=== PATIENT | male | born 1965 | race Asian ===

== ENCOUNTER 2023-04-06 08:00 | Outpatient (CLI) | payer MEDICAID ==
--- NOTE | 2023-04-06 16:37 | XRAY Report ---
PROCEDURE: Knee 3 View RT INDICATIONS: RIGHT KNEE PAIN TECHNIQUE: 3 views of the knee(s) were acquired. COMPARISON: None. FINDINGS: Bones: No fractures or dislocations. No suspicious bony lesions. Soft tissues: No knee joint effusion. No suspicious soft tissue calcifications or masses. IMPRESSION: No acute fracture. No osseous lesion. If symptoms and/or clinical suspicion for pathology continue, f urther assessment with repeat plain films, or advanced imaging (e.g., CT, MRI, or bone scan) is recom mended for further assessment. Reviewed by: Jazmyn Douglass MD on 04/06/2023 4:36 PM PST Approved by: Jazmyn Douglass MD on 04/06/2023 4:36 PM PST Station ID: [id number]
== END 2023-04-06 23:59 | disposition home or self-care (01) ==
LOC: DI.WOS 08:00
PROVIDERS: ATTEND Physician Assistant Surgical
DX: M25.561 Pain in right knee (principal)

== ENCOUNTER 2023-04-10 08:15 | Outpatient (CLI) | payer MEDICAID ==
[2023-04-10 12:27] LABS: BASOPHILS % (AUTO) 0.7 %; EOSINOPHILS # (AUTO) 0.2 10^3/uL (0.0-0.7); HCT - HEMATOCRIT 47.2 % (42.0-52.0); LYMPHOCYTES # (AUTO) 2.1 10^3/uL (1.5-3.5); LYMPHOCYTES % (AUTO) 38.6 %; MEAN CORPUSCULAR HEMOGLOBIN 28.7 pg (27.0-31.0); MEAN CORPUSCULAR HGB CONC 31.8 g/dL (32.0-36.0); MEAN CORPUSCULAR VOLUME 90.2 fL (80.0-94.0); MEAN PLATELET VOLUME 10.1 fL (7.4-11.4); MONOCYTES # (AUTO) 0.5 10^3/uL (0.0-1.0); MONOCYTES % (AUTO) 10.1 %; NEUTROPHILS # (AUTO) 2.5 10^3/uL (1.5-6.6); NEUTROPHILS % (AUTO) 47.4 %; PLT - PLATELET COUNT 209 10^3/uL (130-450); RED BLOOD COUNT 5.23 10^6/uL (4.70-6.10); RED CELL DISTRIBUTION WIDTH 12.8 % (12.0-15.0); WHITE BLOOD COUNT 5.4 x10^3/uL (4.8-10.8)
[2023-04-10 12:45] LABS: CHOL/HDL RATIO 3.6 (<5.0); CHOLESTEROL 197 mg/dL; HDL CHOLESTEROL 55 mg/dL; LDL CHOLESTEROL,CALCULATED 127 mg/dL; LDL/HDL RATIO 2.3 (<3.6); TRIGLYCERIDES 74 mg/dL (48-352); VLDL CHOLESTEROL 15 mg/dL
[2023-04-10 13:08] LABS: ESTIMATED AVERAGE GLUCOSE 114 mg/dL (70-100); HEMOGLOBIN A1c% 5.6 % (4.27-6.07)
[2023-04-11 07:10] LABS: HIV SCREEN 4TH GENERATION Non Reactive (Non Reactive)
[2023-04-15 12:11] LABS: ALBUMIN 4.1 g/dL (3.2-5.5); ALBUMIN/GLOBULIN RATIO 1.3 (1.0-2.2); BILIRUBIN,TOTAL 0.9 mg/dL (0.2-1.0); CALCIUM 9.3 mg/dL (8.5-10.3); CREATININE 0.8 mg/dL (0.6-1.3); POTASSIUM 3.5 mmol/L (3.5-4.5); TOTAL PROTEIN 7.2 g/dL (6.4-8.9)
[2023-04-15 12:17] LABS: THYROID STIMULATING HORMONE 1.74 uIU/mL (0.34-5.60)
== END 2023-04-10 08:16 | disposition home or self-care (01) ==
LOC: LAB.N 08:15
DX: Z00.00 Encounter for general adult medical examination without abnormal findings (principal)
CPT/HCPCS: 36415; 80053; 80061; 83036; 83721; 84443; 85025; 86803; 87389

== ENCOUNTER 2023-04-13 08:00 | Outpatient (CLI) | payer MEDICAID ==
--- NOTE | 2023-04-13 15:06 | XRAY Report ---
PROCEDURE: Hip 1 View RT INDICATIONS: BILAT X-TABLE LATERAL ONLY BILAT HIP PAIN TECHNIQUE: One views of the hip were acquired. COMPARISON: Bilateral pelvic radiographs 02/21/2023. FINDINGS: Bones: No fractures or dislocations. Mild degenerative changes. No suspicious bony lesions. Soft tissues: No suspicious soft tissue calcifications or masses. IMPRESSION: Mild bilateral hip DJD. Reviewed by: Jose Hauser MD on 04/13/2023 3:05 PM PST Approved by: Jose Hauser MD on 04/13/2023 3:05 PM PST Station ID: [id number]
== END 2023-04-13 23:59 | disposition home or self-care (01) ==
LOC: DI.WOS 08:00
PROVIDERS: ATTEND Orthopaedic Surgery
DX: M16.0 Bilateral primary osteoarthritis of hip (principal)

== ENCOUNTER 2023-05-20 08:47 | Outpatient (CLI) | payer MEDICAID ==
--- NOTE | 2023-05-20 09:17 | Sleep Patient Instructions ---
Sleep Center Visit Summary - Patient Visit Information Reason for Visit: Initial consult for evaluation of sleep disordered breathing and other sleep issues. - Patient Instructions Instructions Attached: Sleep Study, Sleep Study Home Monitor Additional Instructions: You will be completing a sleep study, either an in-lab polysomnography (PSG) or home sleep study (HST). You will follow-up in the sleep care office after the sleep study is completed to hear the results and talk about therapy, if needed. You will be called by our office staff to schedule this appointment, but you may contact us with any questions. - Clinic Information Contact: [facility] [address] [place] [id number] [email or web address] T: [phone]
--- NOTE | 2023-05-20 09:26 | SLEEP CARE CONSULTATION ---
Information from patient questionnaire entered by Jasson Browne. I have reviewed and concur with the information entered by Jasson Browne. This document represents the service I personally performed and the decisions made by me, Cherelle Harvey ARNP. History of Present Illness Service Date and Time: 05/20/2023 0847 Reason for Visit: New patient Accompanied by: Daughter Chief Complaint: reports: Snoring, Excessive daytime sleepiness, Observed pauses in breathing Date of Onset: 6MONTHS + Usual bedtime: 11PM Time it takes to fall asleep: 5MIN Snores at night: Yes Observed to quit breathing while asleep: Yes Sleeps alone due to snoring: Yes Number of times waking at night: 2-3 Reasons for waking at night: reports: Choking, Snoring, Gasping for air, Bathroom, Other (dry mouth) Toss, Turn, or Twitch while sleeping: Yes Recalls having dreams: Yes Usually gets out of bed at: 0730 Feels refreshed in the morning: No Morning headache: No Sleepy or fatigued during the day: Yes Ever fallen asleep while driving: Yes (drowsy driving but no accidents) Takes day naps: Yes (unintentional naps - 3-4 times, less than 5 minutes) Dreams during day naps: No Prior sleep studies: No Additional HPI information: I had the pleasure of seeing WILBUR VALDEZ today regarding the possibility of him having a sleep disorder. His current complaints are snoring, excessive daytime sleepiness and observed pauses in breathing. He is accompanied by his daughter today who says she will help with anything he does not understand. He says he understands most Chadian except for a few words. He declined interpreting services. He says he is falling asleep constantly all day long. It does not take long to get sleepy if he sits still. He says he wakes up feeling rested overall. As long as he is busy working or doing things he says he does not feel tired. He does not get to sleep long if he dozes off because his or someone will wake him up. He snores loudly at night and his has noted that he has stopped breathing when sleeping. He says he will wake up most nights with a dry mouth and has woke up feeling like he needs more air. 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 Patient is and lives in . Have you smoked in the past 12 months: No Cigarettes per day (20/pack): 7 Years of smokin Quit date: 1990 Smoking Pack Years: 0.6 Alcohol use: Yes Alcohol amount and frequency: 12OZ 3 TIMES PER YR Caffeine use: Yes Caffeine amount and frequency: 8OZ EVERY MORNING Family History Family history of sleep disordered breathing: No Family Hx Sleep Apnea: Father: Snoring Allergies and Home Medications Known drug allergies: Yes ( LISTED) Drug allergies reviewed: Yes Home medication list reviewed: Yes Allergy and home medication list: Allergies acetaminophen [From Tylenol] Allergy (Verified 05/19/23 08:41) Home Medications Medication Instructions Recorded Confirmed Last Taken Type No Known Home Medications 05/20/23 05/20/23 Unknown History Review of Systems Weight gain over past 5 years: 15 Cardiovascular: denies: high blood pressure Gastrointestinal: reports: heartburn (controlled with diet) Neurological: denies: headaches Psychiatric: denies: anxiety, depression Ear/Nose/Throat: reports: dry mouth/throat (only at night). denies: tonsillectomy, wisdom teeth removed Endocrine: denies: thyroid disease Musculoskeletal: reports: joint pain, mobility problems Immunologic: reports: sneezing, itching, allergies to food or environment Physical Exam Vital signs obtained and entered by: JASSON Patel MA Blood Pressure: 129/85 (LEFT ARM) Cuff size: regular Heart Rate: 73 O2 Saturation: 98 Height: 5 ft 6 in Weight: 189 lb 12.8 oz Body Mass Index: 30.6 BMI Classification: Obese Neck circumference: 16.5 Mouth and throat: narrow oropharynx Soft palate: long Hard palate: normal Uvula: normal Uvula visualization: 25% Mallampati Class III Tongue: enlarged in size with teeth arana on lateral edges Tonsils: small Neck: normal w/o lymphadenopathy or thyromegaly Heart: regular rate and rhythm Lungs: clear bilaterally Impression and Plan 1. Suspected Obstructive Sleep Apnea-Hypopnea Syndrome, as suggested by a history of loud and irregular snoring, observed cessation of breath while as leep, gasping or choking in sleep, unrefreshed sleep, and excessive daytime sleepiness. Narrow oropharynx and obesity are common predisposing factors for obstructive sleep apnea-hypopnea syndrome. I recommend proceeding to polysomnography to confirm the diagnosis and to assess severity. If the patient has significant sleep disordered breathing, a manual CPAP titration study will also be performed to find the optimal treatment pressure. I informed the patient of what the sleep studies involve and after some discussion, obtained agreement to proceed. The pathophysiology of obstructive sleep apnea-hypopnea syndrome was discussed with the patient and health risks of cardiovascular and cerebrovascular disease if not treated. Risks of drowsy driving discussed in detail and patient advised to avoid long distance driving and to pack puller at the first sign of drowsiness. Patient agreed to plan. * Schedule polysomnography. * Avoid long distance driving or driving when feeling sleepy. * Avoid alcohol, sedative and muscle relaxant around bedtime. * Attempt to lose weight. * Review instructions provided by trained office staff on how to prepare for the sleep study. * Return for follow-up after sleep study completed. Counseling Topics: Weight loss health impact Plan: PSG Visit Type: In Office Time Spent with Patient (minutes): 31 Provider Statement: I spent 100% of the Face to Face Visit with the patient with greater than 50% spent counseling the patient and coordination of care.
[2023-05-20 09:40] VITALS: BP 129/85; O2SAT 98
== END 2023-05-20 08:48 | disposition home or self-care (01) ==
LOC: SC 08:47
PROVIDERS: ATTEND Nurse Practitioner Family
DX: G47.10 Hypersomnia, unspecified (principal); R53.83 Other fatigue; G47.8 Other sleep disorders; R06.83 Snoring; R06.81 Apnea, not elsewhere classified; E66.9 Obesity, unspecified; Z68.30 Body mass index [BMI] 30.0-30.9, adult
CPT/HCPCS: 99203; 99212

== ENCOUNTER 2023-07-06 09:07 | Outpatient (CLI) | payer MEDICAID | END 2023-07-06 09:08 | disposition home or self-care (01) | LOC: SC 09:07 | PROVIDERS: ATTEND Nurse Practitioner Family | DX: G47.33 Obstructive sleep apnea (adult) (pediatric) (principal); E66.9 Obesity, unspecified; Z68.30 Body mass index [BMI] 30.0-30.9, adult | CPT/HCPCS: 95806 ==

== ENCOUNTER 2023-07-15 15:53 | Outpatient (CLI) | payer MEDICAID ==
--- NOTE | 2023-07-15 15:35 | SLEEP CARE CONSULTATION ---
Information from patient questionnaire entered by Ana Browne. I have reviewed and concur with the information entered by Ana Browne. This document represents the service I personally performed and the decisions made by , Cherelle Harvey ARNP. History of Present Illness Service Date and Time: 07/15/2023 1520 Accompanied by: Arelis Villegas Initial [place] Sleepiness Scale score: 14 (04/23/23) Current [place] Sleepiness Scale score: 20 (05/14/24) Additional HPI information: WILBUR VALDEZ returns via video appointment for follow up and results of the recently performed home sleep study. His daughter is with him to help him to understand results. He declined using an junior legal secretary and says he understands D[place]. The sleep study showed very severe obstructive sleep apnea with an average AHI of 70.8 and jenna oxygen saturation of 53%. I explained the pathophysiology behind obstructive sleep apnea. We then spent quite a bit of time discussing different treatment options. For mild obstructive sleep apnea, surgery and oral appliance are alternatives to nasal CPAP therapy but in moderate or severe cases, nasal CPAP is the most effective and reliable treatment. I reviewed the impact of weight changes on sleep apnea and strongly recommended losing weight. After some discussion, the patient opted to go with the nasal CPAP therapy. A manual titration study will be ordered to find optimal pressure with office adjustments. I explained how CPAP machine works and what to expect when using the machine. Using CPAP every night in order to get used to it was emphasized. Patient was cautioned about risks of drowsy driving until sleepiness symptoms resolve. Patient denies drowsy driving. Sleep Study - Results Type of Sleep Study: Home sleep study (COMPLETED 07/06/23) Prior sleep studies: No Polysomnography/Home Sleep Study results: Physician Impression: The quality of the study is good. The length of the study is adequate (> 240 minutes). Please also see the tabulated and graphic data. 1. Obstructive Sleep Apnea-Hypopnea (ICD-10 G47.33), very severe, with an AHI of 70.8/hr and jenna SaO2 of 53%. During the study, the patient had 521 apneas (521 obstructive, 0 central, 0 mixed) and 8 hypopneas. The longest episode lasted 92.0 seconds. The respiratory events occurred independently of sleep stage and body position (supine AHI was 73.6 and non-supine, 60.90). 2. Hypoxemia (ICD-10 R09.02), severe, with the lowest oxygen saturation of 53 % and 274.2 minutes with SaO2 under 90%. Baseline oxygen saturation was low (Average oxygen saturation was 86%). Allergies and Home Medications Known drug allergies: Yes (as listed) Drug allergies reviewed: Yes Home medication list reviewed: Yes (no changes) Allergy and home medication list: Allergies acetaminophen [From Tylenol] Allergy (Verified 07/15/23 08:35) Review of Systems Review of systems same as previous: Yes (NO CHANGE) Physical Exam Vital signs obtained and entered by: ANA Patel MA Height: 5 ft 6 in (PER PT) Weight: 186 lb (PER PT) Body Mass Index: 29.9 BMI Classification: Overweight Impression and Plan 1. Obstructive Sleep Apnea-Hypopnea Syndrome, very severe, with lowest oxygen saturation of 53%. Obviously this is the cause of the patients symptoms of unrefreshed sleep, and excessive daytime sleepiness. As mentioned above, the patient will be started on nasal autoCPAP therapy. A manual titration study will be completed to find optimal treatment pressure with office adjustments. Compliance guidelines also reviewed. We will follow up with him after the sleep study to set him up on PAP therapy. He and his daughter voiced understanding. 2. Hypoxemia, severe, with a jenna oxygen saturation of 53% and 274.2 minutes spent under 90%. The baseline oxygen saturation was normal with a low average oxygen saturation of 86%. 3. Overweight, unspecified. Currently patients BMI is 29.9. Obesity increases the risk of apnea, CPAP pressure requirements and overall health risks especially cardiovascular and diabetes. Thus patient is advised to lose weight. * Titration study * Attempt to lose weight. * Avoid alcohol consumption near bedtime. * Avoid supine sleep until using CPAP. * The patient is again cautioned about driving until sleepiness completely resolves. * Return after titration study to be set up on CPAP. Counseling Topics: Weight loss health impact Follow up with Sleep Care in: other (after Titration study) Plan: Titration study Visit Type: Telehealth Video Video Type: Doximity Patient Location: Home Location of Provider: Office Patient agrees and consents to this telehealth visit type: Yes Time Spent with Patient (minutes): 21 Provider Statement: I spent 100% of the Telehealth Video Call with the patient with greater than 50% spent counseling the patient and coordination of care.
== END 2023-07-15 15:54 | disposition home or self-care (01) ==
LOC: SC 15:53
PROVIDERS: ATTEND Nurse Practitioner Family
DX: G47.33 Obstructive sleep apnea (adult) (pediatric) (principal); R09.02 Hypoxemia; E66.3 Overweight; Z68.29 Body mass index [BMI] 29.0-29.9, adult

== ENCOUNTER 2023-12-17 08:41 | Outpatient (CLI) | payer MEDICAID ==
--- NOTE | 2023-12-17 09:16 | Sleep Patient Instructions ---
Sleep Center Visit Summary - Patient Visit Information Reason for Visit: First compliance follow-up - Patient Instructions Additional Instructions: You were here for follow up of CPAP therapy. You will be continued on CPAP therapy with pressure at 17-20 cmH2O. Please let us know if the pressure change is uncomfortable and we can make further adjustments of the pressure. You should follow up with sleep care in 1-2 months. You may contact us sooner for any questions or concerns. - Clinic Information Contact: [facility] [address] [place] [address] [email or web address] T: [phone]
--- NOTE | 2023-12-17 09:22 | SLEEP CARE CONSULTATION ---
Information from patient questionnaire entered by Ana Browne. I have reviewed and concur with the information entered by Ana Browne. This document represents the service I personally performed and the decisions made by me, Cherelle Harvey ARNP. History of Present Illness Service Date and Time: 12/17/2023 0841 Previous diagnosis: Very Severe, Obstructive Sleep Apnea-Hypopnea Syndrome AHI: 70.8 (07/06/2023) Reason for follow up: first compliance Accompanied by: daughter Equipment type: CPAP (RESMED 11 AIRSENSE 08/10/23) Equipment obtained from: Other ([facility]; getting supplies) Mask style: Nasal pillows Backup mask available: No (will keepl old mask when replaced) Last cushion change: 3 days ago Prior sleep studies: No Type of Sleep Study: Home sleep study (COMPLETED 07/06/23) HPI additional information: WILBUR VALDEZ was diagnosed to have very severe, AHI 70.8, obstructive sleep apnea-hypopnea syndrome and returned today with daughter Eduard for CPAP therapy first compliance follow-up. He was offered interpreting services but declined stating he could understand Albanian well enough without need for interpretation. He is also okay with his daughter helping him to understand during the visit. Sleep Study - Results Type of Sleep Study: Home sleep study (COMPLETED 07/06/23) Prior sleep studies: No CPAP Compliance Data - Data Reviewed with Patient Average duration of nightly device use: 6 HRS 17 MINS Compliance rate %: 70 (08/27/23-09/25/23; 22-30 days used) Current pressure setting (cmH2O): 5-20 (median 13, avg 16.7, max 18.6) Average residual AHI: 11.5 Central apnea: 0.6 Obstructive apnea: 7.7 Hypopnea: 1.2 Average large leak: 8.7 L/min Subjective Missed days of use due to: reports: mask issues Patient concerns: denies: aerophagia, mask discomfort, air blowing in eyes, mask leak noise, condensation in mask/hose, nasal congestion, dry mouth, nose, throat, epistaxis Observed to snore while using device: No Current pressure setting perceived as: comfortable On therapy, patient: reports: sleeping better, awakening more refreshed, being more awake and alert during the day, more rested overall. denies: drowsiness while driving Initial [place] Sleepiness Scale score: 14 (04/23/23) Current [place] Sleepiness Scale score: 1 (12/17/23) Allergies and Home Medications Known drug allergies: Yes (as listed) Drug allergies reviewed: Yes Home medication list reviewed: Yes (no changes) Allergy and home medication list: Allergies acetaminophen [From Tylenol] Allergy (Verified 12/15/23 09:56) Review of Systems Review of systems same as previous: Yes (NO CHANGE) Physical Exam Vital signs obtained and entered by: ANA Patel MA Blood Pressure: 138/82 (LEFT ARM) Cuff size: regular Heart Rate: 52 O2 Saturation: 99 Height: 5 ft 6 in Weight: 190 lb 9.6 oz Body Mass Index: 30.7 BMI Classification: Obese Impression and Plan 1. Obstructive Sleep Apnea-Hypopnea Syndrome, very severe, with good treatment compliance and fair apnea control with elevated residual AHI. On CPAP therapy, the patient has better sleep quality and is more rested overall. Patient states he was really surprised at how well he is sleeping through the night and not feeling sleepy during the day. He has less issues with driving drowsy when he has to go to [place] and is not falling asleep constantly throughout the day. He has significant improvement of his sleep apnea although his current pressure settings are not optimal. I will make an adjustment to his pressure today. The patients pressure will be changed to autoCPAP 17-20 cmH20 for elevation of residual AHI. Patient advised to contact me if pressure change is uncomfortable so that it can be adjusted. Goals for apnea control discussed. Patient's apnea severity and rationale for treatment to reduce apnea, improve sleep quality and reduce cardiovascular and cerebrovascular events was reviewed. 2. Obesity, unspecified. Currently patients BMI is 30.7. Obesity increases the risk of apnea, CPAP pressure requirements and overall health risks especially cardiovascular and diabetes. Thus patient is advised to lose weight. * Change auto CPAP pressure to 17-20 cmH2O * Notify me if snoring with mask or feeling that the pressure is too much or too little * Attempt to lose weight * Call this office if any problems using CPAP * Return for follow up in 1-2 months, or sooner if concerns arise Adjust device pressure to (cmH2O): 17-20 Counseling Topics: Weight loss health impact Follow up with Sleep Care in: 1-2 months Visit Type: In Office Time Spent with Patient (minutes): 22 Provider Statement: I spent 100% of the Face to Face Visit with the patient with greater than 50% spent counseling the patient and coordination of care.
[2023-12-17 09:23] VITALS: BP 138/82; O2SAT 99
== END 2023-12-17 08:42 | disposition home or self-care (01) ==
LOC: SC 08:41
PROVIDERS: ATTEND Nurse Practitioner Family
DX: G47.33 Obstructive sleep apnea (adult) (pediatric) (principal); E66.9 Obesity, unspecified; Z68.30 Body mass index [BMI] 30.0-30.9, adult
CPT/HCPCS: 99212; 99213

== ENCOUNTER 2024-02-08 10:45 | Outpatient (CLI) | payer MEDICAID ==
--- NOTE | 2024-02-08 12:37 | SLEEP CARE CONSULTATION ---
Information from patient questionnaire entered by Jasson Browne. I have reviewed and concur with the information entered by Jasson Browne. This document represents the service I personally performed and the decisions made by me, Farhat Portillo MD, [facility]. History of Present Illness Service Date and Time: 02/08/2024 1045 Previous diagnosis: Very Severe, Obstructive Sleep Apnea-Hypopnea Syndrome AHI: 70.8 (07/06/2023) Reason for follow up: other (2 MONTH F/U) Equipment type: CPAP (RESMED 11 AIRSENSE 08/10/23) Equipment obtained from: Other ([facility]; getting supplies) Mask style: Nasal pillows Prior sleep studies: No Type of Sleep Study: Home sleep study (COMPLETED 07/06/23) HPI additional information: Mr. Pena was diagnosed with very severe obstructive sleep apnea-hypopnea syndrome and returns today with daughter for follow up of CPAP therapy. The patient purchased the device from [employer]. and was fitted with ResMed P30i nasal pillows. He said he has not gotten supplies for a while. He uses the device nightly and all through the night. The compliance report shows that he uses the device 26 nights out of the past 30 nights, averaging 6 hours a night. He complains of an irritation on his face but no particular problem with the device such as dry nose, epistaxis, nasal congestion or headache. He thinks that the pressure of 13 - 16 cmH2O (lowered from 17 20) is comfortable. On the CPAP therapy he notices improvement in his sleep quality, and that he wakes up feeling fresher in the morning and more awake/alert during the day. He sleeps alone and does not know if he snores or not. [place] Sleepiness Scale score is 0. The average residual AHI is 3.4; and average air leak is 7.6 L/minute. The 90th percentile pressure is 15 cmH2O. Sleep Study - Results Type of Sleep Study: Home sleep study (COMPLETED 07/06/23) Prior sleep studies: No CPAP Compliance Data - Data Reviewed with Patient Average duration of nightly device use: 6HRS 8MINS Compliance rate %: 87 (12/07/23-02/04/24) Current pressure setting (cmH2O): 13-16 Average residual AHI: 4.4 Subjective Missed days of use due to: reports: travel Patient concerns: reports: mask discomfort Current pressure setting perceived as: comfortable Initial [place] Sleepiness Scale score: 14 (04/23/23) Current [place] Sleepiness Scale score: 0 (02/08/24) Allergies and Home Medications Drug allergies reviewed: Yes Home medication list reviewed: Yes Allergy and home medication list: Allergies acetaminophen [From Tylenol] Allergy (Verified 02/08/24 10:47) Review of Systems Review of systems same as previous: Yes (NO CHANGE) Physical Exam Vital signs obtained and entered by: JASSON Patel MA Blood Pressure: 123/72 (RIGHT ARM) Cuff size: regular Heart Rate: 59 O2 Saturation: 98 Height: 5 ft 6 in Weight: 181 lb Body Mass Index: 29.2 BMI Classification: Overweight Impression and Plan IMPRESSION: 1. Obstructive Sleep Apnea-Hypopnea Syndrome, very severe (AHI was 17.8 by a home sleep apnea test) with the patient continuing to do well on nasal CPAP therapy. He has excellent compliance and significant clinical benefits. The current pressure appears effective and comfortable. Overall, he is very satisfied with treatment, and plans to continue with it long-term. No adjustment is necessary today. PLAN: 1. Continue with autoCPAP set at 13 - 16 cm H2O. 2. Try ResMed N30i mask 3. Prescription made for supplies. 4. Return in one year for follow up or earlier if there is any problem with the treatment. Prescriptions: Device supplies Follow up with Sleep Care in: 1 year Visit Type: In Office Other Participants: Child Time Spent with Patient (minutes): 15 Provider Statement: I spent 100% of the Face to Face Visit with the patient with greater than 50% spent counseling the patient and coordination of care.
[2024-02-08 12:46] VITALS: BP 123/72; O2SAT 98
== END 2024-02-08 10:46 | disposition home or self-care (01) ==
LOC: SC 10:45
PROVIDERS: ATTEND Internal Medicine Pulmonary Disease
DX: G47.33 Obstructive sleep apnea (adult) (pediatric) (principal); E66.3 Overweight; Z68.29 Body mass index [BMI] 29.0-29.9, adult
CPT/HCPCS: 99212